=== PATIENT | female | born 1960 | race African-American/Black ===

== ENCOUNTER 2024-02-18 17:30 | Emergency (ER) | payer BC ==
[~2024-02-18] VITALS: Ht 165.1 cm; Wt 77.1 kg
[2024-02-18 18:02] VITALS: BP_SYST 171; PULSE 90; RESP 16; TEMP 97.5; O2SAT 100
[2024-02-18 19:29] LABS: BASOPHILS % (AUTO) 0.6 % (0.0-2.0); EOSINOPHILS # (AUTO) 0.1 K/uL (0.0-0.4); EOSINOPHILS % (AUTO) 0.7 % (0.0-4.0); HEMATOCRIT 43.2 % (36-48); HEMOGLOBIN 14.5 g/dL (12.0-16.0); LYMPHOCYTES # (AUTO) 2.2 K/uL (1.0-5.5); LYMPHOCYTES % (AUTO) 28.8 % (20.5-51.5); MEAN CORPUSCULAR HEMOGLOBIN 29 pg (27-31); MEAN CORPUSCULAR HGB CONC 34 % (32-36); MEAN CORPUSCULAR VOLUME 86 fL (79.0-98.0); MONOCYTES # (AUTO) 0.4 K/uL (0.0-1.0); MONOCYTES % (AUTO) 5.7 % (1.7-9.3); NEUTROPHILS % (AUTO) 64.2 % (40.0-70.0); PLATELET COUNT (AUTO) 285 K/uL (130-430); RED BLOOD CELL COUNT(AUTO) 5.01 MIL/uL (4.2-6.2); RED CELL DISTRIBUTION WIDTH 15.2 % (9.0-15.0); WHITE BLOOD COUNT (AUTO) 7.8 K/uL (4.8-10.8)
[2024-02-18 19:46] LABS: PROTHROMBIN TIME 10.7 SECS (9.5-12.5)
[2024-02-18 19:59] LABS: ANION GAP 7 (5-15); CALCIUM 9.6 mg/dL (8.4-11.0); CARBON DIOXIDE 30 mmol/L (23-29); CHLORIDE 103 mmol/L (98-107); CREATINE KINASE, TOTAL 155 U/L (26-192); CREATININE 0.94 mg/dL (0.55-1.30); GFR AFRICAN AMERICAN 77 mL/min (>90); GLUCOSE 92 mg/dL (74-106); POTASSIUM 3.9 mmol/L (3.5-5.1); SODIUM SERUM 140 mmol/L (136-145); UREA NITROGEN, BLOOD 19 mg/dL (8-21)
[2024-02-18 20:01] LABS: GFR NON AFRICAN-AMERICAN 64 mL/min (>90)
[2024-02-18] MEDS ORDERED: HYDR-3917 PO (20:37)
[2024-02-18] MEDS ORDERED: IBUP-1969 PO (20:37)
[2024-02-18 21:10] VITALS: BP_SYST 171; PULSE 90; RESP 16; TEMP 97.5; O2SAT 100
== END 2024-02-18 21:10 | disposition home or self-care (01) ==
LOC: SED 17:30
DX: M54.12 Radiculopathy, cervical region (principal); M25.512 Pain in left shoulder; Z88.0 Allergy status to penicillin
CPT/HCPCS: 36415; 71045; 80048; 82550; 84484; 85025; 85610; 85730; 93005; 99285